=== PATIENT | female | born 1990 | race Two or more races ===

== ENCOUNTER 2019-07-15 19:48 | Emergency (ER) | payer SELFPAY ==
[~2019-07-15] VITALS: Ht 165.1 cm; Wt 61.0 kg
[2019-07-15 23:01] LABS: CLARITY URINE CLOUDY (CLEAR); COLOR URINE YELLOW (YELLOW); KETONES URINE NEGATIVE (NEGATIVE); LEUKOCYTE ESTERASE URINE 3+ (NEGATIVE); NITRITE URINE POSITIVE (NEGATIVE); OCCULT BLOOD URINE 3+ (NEGATIVE); PH URINE 5.5 (4.5-8.0); PROTEIN URINE 2+ (NEGATIVE); SPECIFIC GRAVITY URINE 1.016 (1.005-1.030)
[2019-07-15] MEDS ORDERED: NITROFURANTOIN MACROCRYSTAL 25MG CAPSULE PO ONE (23:15)
[2019-07-15] MEDS ORDERED: PHENAZOPYRIDINE HCL 100MG TABLET PO ONE (23:15)
[2019-07-15] MEDS ORDERED: NITROFURANTOIN 100MG M/M CAPSULE PO SCH (23:30)
[2019-07-15 23:58] VITALS: BP 124/68
== END 2019-07-16 00:25 | disposition home or self-care (01) ==
LOC: ER 19:48
DX: N39.0 Urinary tract infection, site not specified (principal)
CPT/HCPCS: 81003; 81025; 87077; 87186; 99283